=== PATIENT | female | born 1970 | race Caucasian/White ===

== ENCOUNTER 2018-03-10 08:55 | Outpatient (CLI) ==
[2014-08-02 19:54] VITALS: BMI 24.1
--- NOTE | 2018-03-10 10:53 | MAMMO ---
EXAM: Bilateral digital screening mammogram (2-D and 3-D) History: Screening Comparison: Bilateral mammogram 05/06/2011 Findings: MLO and CC views of bilateral breasts demonstrate heterogeneously dense breast parenchyma w hich can obscure small lesions. CAD was reviewed by the radiologist. Tomosynthesis was performed. Scattered bilateral breast calcifications. There are multiple well circumscribed masses seen within both breasts. There are no suspicious masses and no architectural distortions. No suspicious microc alcifications. Impression: Benign mammogram. Recommend followup routine screening mammography in 1 year. BIRADS 2, benign
== END 2018-03-10 08:56 | disposition home or self-care (01) ==
LOC: RAD 08:55
PROVIDERS: ATTEND Nurse Practitioner Family
DX: Z12.31 Encounter for screening mammogram for malignant neoplasm of breast (principal)

== ENCOUNTER 2018-06-22 08:34 | Emergency (ER) ==
[2018-06-22 08:42] VITALS: BP 118/85; TEMP 98.9; BMI 25.9
[2018-06-22] MEDS ORDERED: DUONEB NEB STA (08:43)
[2018-06-22] MEDS ORDERED: SOLU-CORTEF 100 MG IVP STA (08:50)
--- NOTE | 2018-06-22 09:30 | DI ---
EXAM: Single view of the chest. History: Short of breath Findings: Heart size is normal. Hyperinflation. No focal consolidation. No appreciable pleural fl uid and no pneumothorax. No acute osseous abnormalities. Impression: No acute cardiopulmonary process. Possible chronic obstructive pulmonary disease
--- NOTE | 2018-06-22 10:39 | ED.PDOC ---
General ED Provider: Dr. MARCIA MANTILLA Chief Complaint: Shortness of Air Stated Complaint: Trouble breathing. Onset this morning. Has had dry cough for 2 days which has progressively worsened. onset with "real dry cough". Has progressively worsened. Anxious. Denies chest pain Time Seen by Physician: 08:35 Mode of Arrival: Walk-In Information Source: Patient Exam Limitations: Clinical condition Primary Care Provider: BRYANT NORIEGA Nursing and Triage Documentation Reviewed and Agree: Yes Does patient meet sepsis criteria?: No System Inflammatory Response Syndrome: Not Applicable Sepsis Protocol: For patient's 13 years and over: Temp is 96.8 and below OR 101 and greater Pulse >90 BPM Resp >20/minute Acutely Altered Mental Status Are patient's symptoms suggestive of a new infection, such as: -Pneumonia -Skin, Soft Tissue -Endocarditis -UTI -Bone, Joint Infection -Implantable Device -Acute Abdominal Infection -Wound Infection -Meningitis -Blood Stream Catheter Infection -Unknown Respiratory Complaint Exam - Shortness of Air Complaint/Exam Onset/Duration: THIS MORNING Symptoms Are: Worse Timing: Constant Initial Severity: Moderate Current Severity: Severe Character: Reports: Dyspnea at rest, Dyspnea on exertion Aggravating: Reports: Recumbent position, Smoke exposure Alleviating: Reports: None Associated Signs and Symptoms: Reports: Cough, Wheezing, Nasal congestion, Labored breathing Related History: Denies: Similar episode History of Healthcare-Acquired Pneumonia: No Pulmonary Embolism Risk Factors: Reports: None Cardiac Risk Factors: Reports: None Pseudomonas Risk Factors: Reports: None Tuberculosis Risk Factors: Reports: None Home Oxygen Use: No Recent Stress Test: No Recent Echo/LV Function: No Respiratory Distress: Moderate Stridor Present: No Tracheal Deviation: No Subcutaneous Emphysema: No Accessory Muscle Use: Yes Retractions: Intercostal Diminished Breath Sounds: Yes Prolonged Expiratory Phase: No Unable to Speak Full Sentences: Yes Fatigue: Yes Leg Swelling: No Cary's Sign Present: No Grunting Respirations: No Kussmaul Respirations: No Differential Diagnoses: Asthma, RSV, Bronchospasm, Mycoplasma, URI Review of Systems - Review Of Systems Constitutional: Reports: No symptoms Eyes: Reports: No symptoms Ears, Nose, Mouth, Throat: Reports: No symptoms Respiratory: Reports: Cough, Short of air, Wheezing Cardiac: Reports: No symptoms GI: Reports: No symptoms : Reports: No symptoms Musculoskeletal: Reports: No symptoms Skin: Reports: No symptoms Neurological: Reports: No symptoms Endocrine: Reports: No symptoms Hematologic/Lymphatic: Reports: No symptoms All Other Systems: Reviewed and Negative Past Medical History - Past Medical History Previously Healthy: Yes Endocrine: Reports: None Cardiovascular: Reports: None, Hypertension Respiratory: Reports: None, Bronchitis, Other (Tobacco exposure) Hematological: Reports: None Gastrointestinal: Reports: None Genitourinary: Reports: None Neuro/Psych: Reports: None Musculoskeletal: Reports: None Cancer: Reports: None Last Menstrual Period: 9 months - Surgical History General Surgical History: Reports: None - Family History Family History: Reports: None - Social History Smoking Status: Current every day smoker Hx Substance Use: No Alcohol Screening: None Physical Exam - Physical Exam Appearance: Ill-appearing, Thin Ill-appearing: Moderate Pain Distress: Moderate Eyes: ADIA ENT: Ears normal, Nose normal, Oropharynx normal Neck: Supple Respiratory: Airway patent, Breath sounds diminished, Wheezes, Retractions Cardiovascular: RRR, No rub, No murmur GI/: Soft, Nontender, No masses, Bowel sounds normal, No Organomegaly Musculoskeletal: Normal strength, ROM intact, No edema, No calf tenderness Skin: Warm, Dry, Normal color Neurological: Sensation intact, Motor intact, Reflexes intact, Cranial nerves intact, Alert, Oriented Psychiatric: Affect appropriate, Mood appropriate Interpretation - Radiology Interpretation Exam Interpreted: CXR (no acute changes/poss early COPD changes), CT Scan ( Chest PE protocol/ASVD/Poss infiltrate ROGER lobe; bibasilar changes/atelectasis vs pnerumonia/ dilation ascending aorta 4.1 cm) - EKG Interpretation Time of EKG #1: 08:38 Rate: Normal Rhythm: Sinus Ectopy: None [place]: NL ST Segment: Normal Re-Evaluation - Re-Evaluation Time of Re-Evaluation: 11:45 Status: Improved Vital Signs Stable: Yes Appearance: NAD Lungs: Clear Skin: Warm and Dry Neuro: Alert and Oriented X3 CV: RRR Critical Care Note - Critical Care Note Total Time (mins): 60 Course - Course Hematology/Chemistry: 06/22/18 08:35 06/22/18 08:35 Orders, Labs, Meds: Lab Review 06/22/18 06/22/18 06/22/18 08:35 08:35 08:35 WBC 6.15 RBC 4.29 Hgb 12.7 Hct 39.1 MCV 91.1 MCH 29.6 MCHC 32.5 RDW Coeff of Bernice 13.8 Plt Count 201 Immature Gran % (Auto) 0.2 Neut % (Auto) 54.3 Lymph % (Auto) 24.6 Jackson % (Auto) 5.7 Eos % (Auto) 14.5 H Baso % (Auto) 0.7 Immature Gran # (Auto) 0.0 Neut # (Auto) 3.4 Lymph # (Auto) 1.5 Jackson # (Auto) 0.4 Eos # (Auto) 0.9 H Baso # (Auto) 0.0 D-Dimer (Manual) 682.24 Puncture Site O2 Saturation ABG pH ABG pCO2 ABG pO2 ABG HCO3 ABG Total CO2 ABG Base Excess FiO2 % Sodium 140.2 Potassium 3.86 Chloride 105.0 Carbon Dioxide 25.5 Anion Gap 13.56 BUN 12.1 Creatinine 1.13 Estimated GFR (MDRD) 51.00 BUN/Creatinine Ratio 10.70 Glucose 98.5 Lactic Acid Calcium 9.89 Magnesium 2.04 Total Bilirubin 0.72 AST 28.5 ALT 17.3 Alkaline Phosphatase 92.9 Troponin I < 0.012 Total Protein 8.21 H Albumin 5.06 H Globulin 3.15 Albumin/Globulin Ratio 1.60 Influ A Molecular Assay Influ B Molecular Assay RSV Antigen 06/22/18 06/22/18 06/22/18 08:42 09:00 09:00 WBC RBC Hgb Hct MCV MCH MCHC RDW Coeff of Bernice Plt Count Immature Gran % (Auto) Neut % (Auto) Lymph % (Auto) Jackson % (Auto) Eos % (Auto) Baso % (Auto) Immature Gran # (Auto) Neut # (Auto) Lymph # (Auto) [place] # (Auto) Eos # (Auto) Baso # (Auto) D-Dimer (Manual) Puncture Site Lb O2 Saturation 94.0 L ABG pH 7.507 H* ABG pCO2 25.4 L ABG pO2 63.0 L ABG HCO3 20.2 L ABG Total CO2 21 L ABG Base Excess -3 L FiO2 % 21.0 Sodium Potassium Chloride Carbon Dioxide Anion Gap BUN Creatinine Estimated GFR (MDRD) BUN/Creatinine Ratio Glucose Lactic Acid 0.88 Calcium Magnesium Total Bilirubin AST ALT Alkaline Phosphatase Troponin I Total Protein Albumin Globulin Albumin/Globulin Ratio Influ A Molecular Assay Negative by naat Influ B Molecular Assay Negative by naat RSV Antigen 06/22/18 09:00 WBC RBC Hgb Hct MCV MCH MCHC RDW Coeff of Bernice Plt Count Immature Gran % (Auto) Neut % (Auto) Lymph % (Auto) Jackson % (Auto) Eos % (Auto) Baso % (Auto) Immature Gran # (Auto) Neut # (Auto) Lymph # (Auto) Jackson # (Auto) Eos # (Auto) Baso # (Auto) D-Dimer (Manual) Puncture Site O2 Saturation ABG pH ABG pCO2 ABG pO2 ABG HCO3 ABG Total CO2 ABG Base Excess FiO2 % Sodium Potassium Chloride Carbon Dioxide Anion Gap BUN Creatinine Estimated GFR (MDRD) BUN/Creatinine Ratio Glucose Lactic Acid Calcium Magnesium Total Bilirubin AST ALT Alkaline Phosphatase Troponin I Total Protein Albumin Globulin Albumin/Globulin Ratio Influ A Molecular Assay Influ B Molecular Assay RSV Antigen Negative by naat Orders Category Date Time Status ABG DRAW REQUEST Stat CARDIO 06/22/18 08:43 Completed EKG-(ED ONLY) Stat CARDIO 06/22/18 08:46 Completed NEBULIZER TREATMENT Stat CARDIO 06/22/18 08:44 Completed NEBULIZER TREATMENT Stat CARDIO 06/22/18 12:42 Completed OXYGEN Routine CARDIO 06/22/18 08:46 Completed NPO REMINDER: IMAGING ONCE CARE 06/22/18 10:36 Completed ABG Stat LAB 06/22/18 08:42 Completed BLOOD CULTURE (ED ONLY) Stat LAB 06/22/18 09:00 Completed CBC W/ AUTO DIFF Stat LAB 06/22/18 08:35 Completed CMP [COMPREHENSIVE METABOLIC PANEL] Stat LAB 06/22/18 08:35 Completed D-DIMER Stat LAB 06/22/18 08:35 Completed FLU A & B MOLECULAR [FLU A/B MOLECULAR] Stat LAB 06/22/18 09:00 Completed LACTIC ACID Stat LAB 06/22/18 09:00 Completed MAGNESIUM Stat LAB 06/22/18 08:35 Completed RSV Stat LAB 06/22/18 09:00 Completed TROPONIN I Stat LAB 06/22/18 08:35 Completed Albuterol Sulfate 0.083% Neb [Albuterol 0.083% Neb] MEDS 06/22/18 12:41 Discontinued 1 vial NEB ONCE STA Hydrocortisone Sod Succ/Pf [Solu-Cortef 100 mg] MEDS 06/22/18 08:50 Discontinued 100 mg IVP ONCE STA Ipratropium/Albuterol Neb [Duoneb] MEDS 06/22/18 08:43 Discontinued 1 vial NEB ONCE STA CHEST, 1V AP ONLY Stat RADS 06/22/18 08:[address] CHEST PE PROTOCOL Stat RADS 06/22/18 10:35 Completed Medications Discontinued Medications Generic Name Dose Route Start Last Admin Trade Name Freq PRN Reason Stop Dose Admin Albuterol Sulfate 1 vial 06/22/18 12:41 06/22/18 12:46 Albuterol 0.083% Neb NEB 06/22/18 12:42 1 vial ONCE STA Administration Albuterol/Ipratropium 1 vial 06/22/18 08:43 06/22/18 08:50 Duoneb NEB 06/22/18 08:44 1 vial ONCE STA Administration Hydrocortisone Sodium Succinate 100 mg 06/22/18 08:50 06/22/18 08:59 Solu-Cortef 100 Mg IVP 06/22/18 08:51 100 mg ONCE STA Administration Vital Signs: Temp Pulse Resp BP Pulse Ox 06/22/18 08:34 98.9 F 82 28 H 118/85 96 Departure - Departure Time of Disposition: 12:15 Disposition: HOME SELF-CARE Discharge Problem: Acute bronchitis Instructions: Acute Bronchitis (ED), Pneumonia (ED) Condition: Fair Pt referred to PMD for follow-up: Yes (5-7 days) IPMP verified?: No Referrals: BRYANT NORIEGA MD [Primary Care Provider] - Additional Instructions: Take meds as directed Avoid tobacco use or exposure Take Mucinex twice daily Prescriptions: Albuterol Sulfate [Ventolin Hfa] 2 puff IH Q4-6H PRN #1 hfa.aer.ad PRN Reason: Wheezing Doxycycline Monohydrate 100 mg PO BID #20 tablet Guaifenesin [Mucinex] 600 mg PO BID #60 tab.er.12h Inhaler, Assist Devices [Space Chamber Plus] 1 unit PO 3-4XD 90 Days #1 spr Prednisone 10 mg PO DIRECTED #12 tablet Allergies/Adverse Reactions: Allergies amoxicillin trihydrate [From Augmentin] Adverse Reaction (Verified 06/22/18 08: 47) potassium clavulanate [From Augmentin] Adverse Reaction (Verified 06/22/18 08:47 ) Home Medications: Ambulatory Orders Benazepril HCl [Lotensin] 40 mg PO DAILY 09/20/12 Aspirin 81 mg PO DAILY 02/17/18 Albuterol Sulfate [Ventolin Hfa] 2 puff IH Q4-6H PRN #1 hfa.aer.ad 06/22/18 Doxycycline Monohydrate 100 mg PO BID #20 tablet 06/22/18 Guaifenesin [Mucinex] 600 mg PO BID #60 tab.er.12h 06/22/18 Inhaler, Assist Devices [Space Chamber Plus] 1 unit PO 3-4XD 90 Days #1 spr 01/30 Prednisone 10 mg PO DIRECTED #12 tablet 06/22/18 Disposition Discussed With: Patient (Take all of meds. Close follow up with PCP in next week for re evaluation and review of all diagnostic testing) Additional Comments Additional Comments: 1030: Patient remains improved. Still sl dyspneic O 2 sat at 93 % Testing reviewed. D dimer elevated. CT PE protocol ordered. 1140: Patient remains improved. CTA for PE Protocol neg for PE. Incidental findings of dilation of thoracic aorta with a diameter 4.1 cm,mild bibasilar atelecatasi and subtle infiltrate Lt upper lobe. Patient instructed on follow up with pcp in 1 wk for recheck
--- NOTE | 2018-06-22 12:11 | CT ---
EXAM: CTA CHEST (PE PROTOCOL) HISTORY: Elevated D-dimer, shortness of breath TECHNIQUE: CTA chest with intravenous contrast. Multiplanar images were provided with 3-D reconstru ctions. 100 ml Visipaque. FINDINGS: No comparison. No pulmonary arterial filling defect. There is at least mild atherosclerotic disease. There is aneu rysmal caliber of the tubular ascending aorta at 4.1 cm. There are mild bibasilar consolidations. Questionable subtle infiltrate in the medial left upper lob e. There is no vascular congestion or central interstitial edema. No pleural fluid or pneumothorax. The bones reveal no acute finding. Collateral venous vessels are noted in the right axilla, supracla vicular space and lateral chest wall. There is a tiny sliding hiatal hernia. IMPRESSION: 1. No pulmonary arterial thromboembolism. 2. Aneurysmal caliber of the tubular ascending aorta at 4.1 cm. There is at least mild atherosclero tic disease. 3. Subtle infiltrate in the left upper lobe could represent minimal pneumonia. Mild bibasilar conso lidations could represent pneumonia or atelectasis. 4. Tiny sliding hiatal hernia.
[2018-06-22] MEDS ORDERED: ALBUTEROL 0.083% NEB NEB STA (12:41)
== END 2018-06-22 13:17 | disposition home or self-care (01) ==
LOC: ED 08:34
DX: J20.9 Acute bronchitis, unspecified (principal); I10 Essential (primary) hypertension; F17.210 Nicotine dependence, cigarettes, uncomplicated; R79.89 Other specified abnormal findings of blood chemistry; R91.8 Other nonspecific abnormal finding of lung field
CPT/HCPCS: 36415; 80053; 82803; 83605; 83735; 84484; 85025; 85379; 87040; 87502; 87801; 93005; 93010; 94640; 96374; 99283

== ENCOUNTER 2018-07-18 08:42 | Emergency (ER) ==
[2018-07-18 08:52] VITALS: BP 128/85; TEMP 98.3; BMI 26.6
--- NOTE | 2018-07-18 09:17 | ED.PDOC ---
General ED Provider: Dr. MARCIA MANTILLA Chief Complaint: Respiratory Complaint Stated Complaint: Cough and congestion. Has been ill intermittently for past several weeks. Has just finished a course of steroids prescribed by Dr Noriega. States I feel horrible. Feels SOB and noted to be slightly hyperventilating.. States can not bring up congestion. Time Seen by Physician: 09:10 Mode of Arrival: Walk-In Information Source: Patient Exam Limitations: No limitations Primary Care Provider: BRYANT NORIEGA Nursing and Triage Documentation Reviewed and Agree: Yes Does patient meet sepsis criteria?: No System Inflammatory Response Syndrome: Not Applicable Sepsis Protocol: For patient's 13 years and over: Temp is 96.8 and below OR 101 and greater Pulse >90 BPM Resp >20/minute Acutely Altered Mental Status Are patient's symptoms suggestive of a new infection, such as: -Pneumonia -Skin, Soft Tissue -Endocarditis -UTI -Bone, Joint Infection -Implantable Device -Acute Abdominal Infection -Wound Infection -Meningitis -Blood Stream Catheter Infection -Unknown Review of Systems - Review Of Systems Constitutional: Reports: Malaise, Weakness, Other Eyes: Reports: No symptoms Ears, Nose, Mouth, Throat: Reports: No symptoms Respiratory: Reports: Cough, Short of air, Wheezing Cardiac: Reports: No symptoms GI: Reports: No symptoms : Reports: No symptoms Musculoskeletal: Reports: Other (Chest Wall Pain ) Skin: Reports: No symptoms Neurological: Reports: No symptoms Endocrine: Reports: No symptoms Hematologic/Lymphatic: Reports: No symptoms All Other Systems: Reviewed and Negative Past Medical History - Past Medical History Previously Healthy: Yes Endocrine: Reports: None Cardiovascular: Reports: None, Hypertension, Other (Decending Thoracic aortic dilatation 4.1 cm) Respiratory: Reports: None, Bronchitis, Pneumonia (lt upper lobe), Other ( Tobacco exposure) Hematological: Reports: None Gastrointestinal: Reports: None Genitourinary: Reports: None Neuro/Psych: Reports: None Musculoskeletal: Reports: None Cancer: Reports: None Last Menstrual Period: 9-10 mos ago - Surgical History General Surgical History: Reports: None - Family History Family History: Reports: None - Social History Smoking Status: Former smoker Hx Substance Use: No Alcohol Screening: None - Immunizations Tetanus Shot up to Date: Yes Physical Exam - Physical Exam Appearance: Ill-appearing Ill-appearing: Moderate Pain Distress: Mild Eyes: ADIA, EOMI, Conjunctiva clear ENT: Ears normal, Nose normal, Oropharynx normal, Erythema (Lt EAC) Neck: Supple Respiratory: Airway patent, Breath sounds equal, Respirations nonlabored, Rhonchi, Wheezes (Expiratory wheezing and rhonchi) Cardiovascular: RRR, Pulses normal, No rub, No murmur GI/: Soft, Nontender, No masses, Bowel sounds normal, No Organomegaly Musculoskeletal: Normal strength, ROM intact, No edema, No calf tenderness Skin: Warm, Dry, Normal color Neurological: Sensation intact, Motor intact, Reflexes intact, Cranial nerves intact, Alert, Oriented Psychiatric: Affect appropriate, Mood appropriate Interpretation - Radiology Interpretation Radiology Interpretation By: Radiologist Radiology Results: No acute changes Exam Interpreted: CXR Xray Comments: Improved -no acute abnormality - EKG Interpretation Rate: Normal (PAC with aberrant conduction ) Rhythm: Sinus Re-Evaluation - Re-Evaluation Status: Improved Vital Signs Stable: Yes Appearance: NAD Lungs: Other (Decreased wheezing and congestion) Skin: Warm and Dry Neuro: Alert and Oriented X3 CV: RRR Critical Care Note - Critical Care Note Total Time (mins): 60 Course - Course Hematology/Chemistry: 07/18/18 09:40 07/18/18 09:40 Orders, Labs, Meds: Lab Review 07/18/18 07/18/18 07/18/18 09:22 09:31 09:40 WBC 9.08 RBC 3.85 L Hgb 11.6 L Hct 35.0 L MCV 90.9 MCH 30.1 MCHC 33.1 RDW Coeff of Bernice 14.2 Plt Count 226 Immature Gran % (Auto) 1.0 Neut % (Auto) 50.5 Lymph % (Auto) 35.6 [place] % (Auto) 6.9 Eos % (Auto) 5.4 Baso % (Auto) 0.6 Immature Gran # (Auto) 0.1 Neut # (Auto) 4.6 Lymph # (Auto) 3.2 [place] # (Auto) 0.6 Eos # (Auto) 0.5 Baso # (Auto) 0.1 Puncture Site rrad O2 Saturation 97.0 ABG pH 7.513 H* ABG pCO2 28.2 L ABG pO2 79.0 L ABG HCO3 22.7 ABG Total CO2 24 ABG Base Excess 0 Joseph Test + FiO2 % 21.0 Sodium Potassium Chloride Carbon Dioxide Anion Gap BUN Creatinine Estimated GFR (MDRD) BUN/Creatinine Ratio Glucose Calcium Total Bilirubin AST ALT Alkaline Phosphatase Troponin I Total Protein Albumin Globulin Albumin/Globulin Ratio Influ A Molecular Assay Negative by naat Influ B Molecular Assay Negative by naat 07/18/18 09:40 WBC RBC Hgb Hct MCV MCH MCHC RDW Coeff of Bernice Plt Count Immature Gran % (Auto) Neut % (Auto) Lymph % (Auto) [place] % (Auto) Eos % (Auto) Baso % (Auto) Immature Gran # (Auto) Neut # (Auto) Lymph # (Auto) [place] # (Auto) Eos # (Auto) Baso # (Auto) Puncture Site O2 Saturation ABG pH ABG pCO2 ABG pO2 ABG HCO3 ABG Total CO2 ABG Base Excess Joseph Test FiO2 % Sodium 136.5 Potassium 3.68 Chloride 104.3 Carbon Dioxide 22.8 Anion Gap 13.08 BUN 13.1 Creatinine 0.96 Estimated GFR (MDRD) 62.00 BUN/Creatinine Ratio 13.64 Glucose 95.2 Calcium 9.47 Total Bilirubin 0.38 AST 17.7 ALT 15.6 Alkaline Phosphatase 81.6 Troponin I < 0.012 Total Protein 6.71 Albumin 4.29 Globulin 2.42 Albumin/Globulin Ratio 1.77 Influ A Molecular Assay Influ B Molecular Assay Orders Category Date Time Status ABG DRAW REQUEST Stat CARDIO 07/18/18 09:24 Completed EKG-(ED ONLY) Stat CARDIO 07/18/18 09:22 Completed NEBULIZER TREATMENT Stat CARDIO 07/18/18 09:23 Completed NEBULIZER TREATMENT Stat CARDIO 07/18/18 09:25 Completed ABG Stat LAB 07/18/18 09:22 Completed BLOOD CULTURE (ED ONLY) Stat LAB 07/18/18 10:10 Received CBC W/ AUTO DIFF Stat LAB 07/18/18 09:40 Completed CMP [COMPREHENSIVE METABOLIC PANEL] Stat LAB 07/18/18 09:40 Completed FLU A & B MOLECULAR [FLU A/B MOLECULAR] Stat LAB 07/18/18 09:31 Completed RAPID STREP SCREEN [MOLECULAR GROUP A STREP] Stat LAB 07/18/18 09:31 Completed SPUTUM CULTURE Stat LAB 07/18/18 09:23 Uncollected TROPONIN I Stat LAB 07/18/18 09:40 Completed Budesonide [Pulmicort 0.25 mg/2 ml] MEDS 07/18/18 09:22 Discontinued 1 vial NEB ONCE STA Ipratropium [place] 0.02% Neb [Atrovent 0.02% Neb] MEDS 07/18/18 09:22 Discontinued 1 vial NEB ONCE STA Levalbuterol HCl [Xopenex 1.25 mg] MEDS 07/18/18 09:22 Discontinued 1 vial NEB ONCE STA CHEST, 2 VIEWS PA & LAT Stat RADS 07/18/18 09:22 Completed Medications Discontinued Medications Generic Name Dose Route Start Last Admin Trade Name Freq PRN Reason Stop Dose Admin Budesonide 1 vial 07/18/18 09:22 07/18/18 09:55 Pulmicort 0.25 Mg/2 Ml NEB 07/18/18 09:23 1 vial ONCE STA Administration Ipratropium [place] 1 vial 07/18/18 09:22 07/18/18 09:51 Atrovent 0.02% Neb NEB 07/18/18 09:23 1 vial ONCE STA Administration Levalbuterol HCl 1 vial 07/18/18 09:22 07/18/18 09:49 Xopenex 1.25 Mg NEB 07/18/18 09:23 1 vial ONCE STA Administration Vital Signs: Temp Pulse Resp BP Pulse Ox 07/18/18 08:48 98.3 F 71 22 128/85 97 Departure - Departure Time of Disposition: 11:50 Disposition: HOME SELF-CARE Discharge Problem: COPD exacerbation, Tobacco abuse, Tobacco abuse counseling Instructions: COPD (Chronic Obstructive Pulmonary Disease) (ED), How Your Lungs Work (ED), Chronic Lung Disease and Infection Prevention (ED), How to Stop Smoking (ED) Condition: Fair Pt referred to PMD for follow-up: Yes (Dr Noriega-next week) IPMP verified?: No Additional Instructions: Pharmacist at [facility], [place] contacted-only covered LABA AirDuo Will Rx and they will fill Instruct on Pro Air 2 puff every 4-6 hrs as needed for increased shortness of breath Use Chantix STOP SMOKING See Dr Noriega next week and discuss obtaining Nebulizer machine to use inhaled meds Prescriptions: Albuterol Sulfate [Proventil Hfa] 2 puff IH QID PRN #1 hfa.aer.ad PRN Reason: chest wheezing ; sob Budesonide/Formoterol Fumarate [Symbicort 160-4.5 Mcg Inhaler] 2 puff IH BID 30 Days #1 inhaler Fluticasone/Salmeterol [Airduo Respiclick 113-14 Mcg] 1 each IH BID #1 aer.pow.ba Prednisone 10 mg PO DAILYWM #30 tablet Allergies/Adverse Reactions: Allergies amoxicillin trihydrate [From Augmentin] Adverse Reaction (Verified 07/18/18 08: 48) potassium clavulanate [From Augmentin] Adverse Reaction (Verified 07/18/18 08:48 ) Home Medications: Ambulatory Orders Benazepril HCl [Lotensin] 40 mg PO DAILY 09/20/12 Aspirin 81 mg PO DAILY 02/17/18 Albuterol Sulfate [Ventolin Hfa] 2 puff IH Q4-6H PRN #1 hfa.aer.ad 06/22/18 Guaifenesin [Mucinex] 600 mg PO BID #60 tab.er.12h 06/22/18 Inhaler, Assist Devices [Space Chamber Plus] 1 unit PO 3-4XD 90 Days #1 spr 01/30 Albuterol Sulfate [Proventil Hfa] 2 puff IH QID PRN #1 hfa.aer.ad 07/18/18 Budesonide/Formoterol Fumarate [Symbicort 160-4.5 Mcg Inhaler] 2 puff IH BID 30 Days #1 inhaler 07/18/18 Fluticasone/Salmeterol [Airduo Respiclick 113-14 Mcg] 1 each IH BID #1 aer.kel.ba 07/18/18 Prednisone 10 mg PO DAILYWM #30 tablet 07/18/18 Transfer Form Completed: Yes Additional Information: Pharmacist at [facility], [place], [facility] contacted-only covered LABA AirDuo Will Rx and they will fill Instruct on Pro Air 2 puff every 4-6 hrs as needed for increased shortness of breath See Dr Noriega next week
[2018-07-18] MEDS ORDERED: PULMICORT 0.25 MG/2 ML NEB STA (09:22)
[2018-07-18] MEDS ORDERED: ATROVENT 0.02% NEB NEB STA (09:22)
[2018-07-18] MEDS ORDERED: XOPENEX 1.25 MG NEB STA (09:22)
--- NOTE | 2018-07-18 10:50 | DI ---
EXAM: CHEST FRONTAL AND LATERAL VIEWS HISTORY: Cough, congestion. COMPARISON: 06/22/2018 FINDINGS: Heart size and mediastinal contour remain within normal limits. No acute infiltrates. Normal vascularity with no pleural fluid or pneumothorax. The bony thorax has no acute finding. IMPRESSION: No acute process.
== END 2018-07-18 12:35 | disposition home or self-care (01) ==
LOC: ED 08:42
DX: J44.1 Chronic obstructive pulmonary disease with (acute) exacerbation (principal); Z72.0 Tobacco use; Z71.6 Tobacco abuse counseling; I10 Essential (primary) hypertension; Z79.899 Other long term (current) drug therapy
CPT/HCPCS: 36415; 80053; 82803; 84484; 85025; 87040; 87502; 87651; 93005; 93010; 94640; 99283